=== PATIENT | female | born 1955 | race Two or more races ===

== ENCOUNTER 2016-12-15 14:22 | Inpatient (IN) | payer OTHER ==
[~2016-12-15] VITALS: Ht 154.9 cm; Wt 67.1 kg
[2016-12-15] MEDS ORDERED: MORPHINE SULFATE 2 MG/1 ML DISP.SYRIN IV ONE (15:45)
[2016-12-15] MEDS ORDERED: ONDANSETRON 4 MG/2 ML VIAL IV ONE (15:45)
[2016-12-15] MEDS ORDERED: ONDANSETRON 4 MG/2 ML VIAL ONE (15:53)
[2016-12-15] MEDS ORDERED: MORPHINE SULFATE 2 MG/1 ML DISP.SYRIN ONE (15:53)
[2016-12-15 15:59] LABS: BASOPHILS % (AUTO) 0.6 % (0.0-2.0); EOSINOPHILS # (AUTO) 0.1 K/uL (0.0-0.7); EOSINOPHILS % (AUTO) 1.9 % (0.0-7.0); HEMATOCRIT 40.1 % (37-47); HEMOGLOBIN 13.2 G/DL (12.0-16.0); LYMPHOCYTES # (AUTO) 2.9 K/UL (0.8-4.8); MEAN CORPUSCULAR HEMOGLOBIN 27.1 UUG (27.0-31.0); MEAN CORPUSCULAR HGB CONC 33 g/dL (32.0-37.0); MEAN CORPUSCULAR VOLUME 82.4 FL (81.0-99.0); MONOCYTES # (AUTO) 0.6 K/UL (0.1-1.30); MONOCYTES % (AUTO) 7.9 % (0.0-11.0); NEUTROPHILS # (AUTO) 3.9 K/UL (1.8-8.9); NEUTROPHILS % (AUTO) 50.6 % (38.5-71.5); PLATELET COUNT (AUTO) 262 K/UL (150-450); RED BLOOD CELL COUNT(AUTO) 4.87 MIL/UL (4.2-5.4); WHITE BLOOD COUNT (AUTO) 7.5 K/UL (4.0-11.2)
[2016-12-15 16:01] LABS: CREATININE 0.7 mg/dL (0.6-1.3); POTASSIUM 3.7 mmol/L (3.5-5.1)
[2016-12-15 16:07] LABS: BILIRUBIN,DIRECT 0.1 mg/dL (0.0-0.2); BILIRUBIN,TOTAL 0.2 mg/dL (0.2-1.0); TOTAL PROTEIN, SERUM 7.6 g/dL (6.4-8.2)
--- NOTE | 2016-12-15 16:57 | NUR ---
TEXTED DR. AMADO FOR MRI APPROVAL.
--- NOTE | 2016-12-15 17:11 | NUR ---
FOLLOWED UP WITH [facility] ON MRI, [facility] WILL CALL BACK.
--- NOTE | 2016-12-15 17:40 | NUR ---
MIKE FROM [facility] CALLED MAHIK AND SAID THE PT MRI CAN BE DONE AT 0830. CALLED [facility] AND SCHEDULED A CONSTRUCTION ACCOUNTANT AT 0745.
--- NOTE | 2016-12-15 19:20 | NUR ---
Received report from ROXANNA Hemphill. Assumed care of pt at this time. Pt resting in position of comfort for self. Awaiting [facility] transport to [place] for MRI scan.
--- NOTE | 2016-12-15 19:53 | NUR ---
EMS at bedside to transfer pt to [place] for MRI
--- NOTE | 2016-12-15 20:55 | NUR ---
Pt returned to room from [place]. Awaiting MRI results.
[2016-12-15] MEDS ORDERED: METOCLOPRAMIDE HCL 10 MG/2 ML VIAL IV ONE (21:45)
[2016-12-15] MEDS ORDERED: METOCLOPRAMIDE HCL 10 MG/2 ML VIAL ONE (22:06)
--- NOTE | 2016-12-15 22:10 | NUR ---
Pt c/o pain. MD aware. Pt medicated, will monitor for effects of medication. Pt resting in position of comfort for self. Family at bedside.
--- NOTE | 2016-12-15 23:30 | NUR ---
Pt to be admitted. Report called to ROXANNA Woodward. Preparing to transfer pt to the floor.
[2016-12-15] MEDS ORDERED: MORPHINE SULFATE 4 MG/1 ML DISP.SYRIN IV STA (23:59)
--- NOTE | 2016-12-16 00:10 | NUR ---
Pt c/o increased pain and mild dizziness. Pt informed the current dizziness is possibley the side effect of the medications she has received thus far. MD notified of pt's pain. Pt medicated for discomfort, will monitor for effects of medication.
[2016-12-16] MEDS ORDERED: ONDANSETRON 4 MG/2 ML VIAL IV PRN ×2 (00:15→03:15)
[2016-12-16 00:16] VITALS: BP 139/83
[2016-12-16] MEDS ORDERED: ONDANSETRON 4 MG/2 ML VIAL ONE (00:16)
[2016-12-16] MEDS ORDERED: MORPHINE SULFATE 4 MG/1 ML DISP.SYRIN ONE (00:16)
--- NOTE | 2016-12-16 00:48 | NUR ---
In from ER via [facility], 61 y/o female patient admitted due to severe headache associated w/ dizziness but denies N/V. Awake alert & oriented no SOB denies chest pain. Assisted to the bathroom, patient still c/o dizziness. Vital signs are WNL. Offered night snacks, patient tolerated. Paged Dr. Pineda for admitting orders.
[2016-12-16] MEDS ORDERED: ZOLPIDEM 5 MG TABLET PO PRN (03:15)
[2016-12-16] MEDS ORDERED: Z GUARD REMEDY PASTE 57 GM TUBE TOP PRN (03:15)
[2016-12-16] MEDS ORDERED: HYDROCODONE/APAP 5-325MG TABLET PO PRN (03:15)
[2016-12-16] MEDS ORDERED: ACETAMINOPHEN 325 MG TABLET PO PRN (03:15)
[2016-12-16] MEDS ORDERED: MAGNESIUM HYDROXIDE 30 ML LIQUID UDC PO PRN (03:15)
[2016-12-16 04:00] VITALS: BP 93/57
--- NOTE | 2016-12-16 06:28 | NUR ---
Patient fairly rested. No acute resp. distress. Vital signs are stable.
--- NOTE | 2016-12-16 06:44 | NUR ---
Awake c/o headache. [place] 1 tab po given. Denies N/V.
[2016-12-16] MEDS ORDERED: HYDROCODONE/APAP 5-325MG TABLET ONE (06:56)
[2016-12-16] MEDS ORDERED: PANTOPRAZOLE SODIUM 40 MG TABLET.DR PO SCH (07:16)
--- NOTE | 2016-12-16 07:30 | NUR ---
PT RECEIVED IN BED SLEEPING.PT IS AXOX4 .
[2016-12-16 12:08] LABS: BASOPHILS % (AUTO) 0.7 % (0.0-2.0); EOSINOPHILS # (AUTO) 0.1 K/uL (0.0-0.7); EOSINOPHILS % (AUTO) 2.1 % (0.0-7.0); HEMATOCRIT 39.5 % (37-47); HEMOGLOBIN 13.1 G/DL (12.0-16.0); LYMPHOCYTES # (AUTO) 2.7 K/UL (0.8-4.8); LYMPHOCYTES % (AUTO) 37.5 % (20.5-51.5); MEAN CORPUSCULAR HEMOGLOBIN 27.3 UUG (27.0-31.0); MEAN CORPUSCULAR HGB CONC 33 g/dL (32.0-37.0); MEAN CORPUSCULAR VOLUME 82.2 FL (81.0-99.0); MONOCYTES # (AUTO) 0.6 K/UL (0.1-1.30); NEUTROPHILS # (AUTO) 3.7 K/UL (1.8-8.9); NEUTROPHILS % (AUTO) 51.7 % (38.5-71.5); PLATELET COUNT (AUTO) 248 K/UL (150-450); WHITE BLOOD COUNT (AUTO) 7.1 K/UL (4.0-11.2)
[2016-12-16 12:10] VITALS: BP 111/71
[2016-12-16 12:19] LABS: CREATININE 0.8 mg/dL (0.6-1.3); MAGNESIUM 2.1 mg/dL (1.8-2.4); PHOSPHOROUS 4.4 mg/dL (2.5-4.9); POTASSIUM 3.8 mmol/L (3.5-5.1)
[2016-12-16 12:27] LABS: THYROID STIMULATING HORMONE 3.038 mIU/mL (0.358-3.740)
[2016-12-16] MEDS ORDERED: SUMATRIPTAN SUCCINATE 50 MG TABLET PO ONE (15:15)
[2016-12-16 16:14] VITALS: BP 117/79
[2016-12-16] MEDS ORDERED: HYDR-3326 PO (17:55)
--- NOTE | 2016-12-16 18:20 | NUR ---
D/C ORDERS RECEIVED NOTED AND CARRIED OUT.D/C INSTRUCTIONS AND EDUCATIONS GIVEN TO THE PT..PT VERBALIZED UNDERSTANDING ALL THE INSTRUCTION.D/C [place] PER MD ORDERS.
== END 2016-12-16 18:25 | disposition home or self-care (01) | DRG 54 ==
LOC: ER 14:28 → MED 22:10
PROVIDERS: ADMIT Internal Medicine; ATTEND Internal Medicine
DX: G43.109 Migraine with aura, not intractable, without status migrainosus (principal); E78.5 Hyperlipidemia, unspecified; F41.9 Anxiety disorder, unspecified; R42 Dizziness and giddiness; Z88.1 Allergy status to other antibiotic agents; F43.0 Acute stress reaction; I70.0 Atherosclerosis of aorta
CPT/HCPCS: 36415; 70030-TC; 70450; 70551; 71010; 83735; 84100; 84443; 85025; 93005; A4663; J2270; J2405; J2765

== ENCOUNTER 2017-08-19 03:45 | Emergency (ER) | payer OTHER ==
[~2017-08-19] VITALS: Ht 162.6 cm; Wt 65.8 kg
[~2017-08-19 03:45] MED LIST: HYDR-3326 PO
[2017-08-19] MEDS ORDERED: BISACODYL 10 MG SUPP.RECT RC ONE ×2 (04:26→04:30)
[2017-08-19] MEDS ORDERED: KETOROLAC TROMETHAMINE 60 MG INJ IM ONE ×2 (04:26→04:30)
[2017-08-19] MEDS ORDERED: MAGNESIUM CITRATE 296 ML BOTTLE PO ONE (04:30)
[2017-08-19] MEDS ORDERED: MAGNESIUM CITRATE 296 ML BOTTLE ONE (04:37)
--- NOTE | 2017-08-19 04:57 | NUR ---
Patient discharged to home in stable conditon. Written and verbal after care instructions given. Patient verbalizes understanding of instructions.
[2017-08-19 04:59] VITALS: BP 138/91
== END 2017-08-19 04:56 | disposition home or self-care (01) ==
LOC: ER 03:51
DX: K59.00 Constipation, unspecified (principal); G43.909 Migraine, unspecified, not intractable, without status migrainosus; Z88.1 Allergy status to other antibiotic agents; Z79.891 Long term (current) use of opiate analgesic
CPT/HCPCS: 96372; 99283; A4663; J1885

== ENCOUNTER 2024-03-11 08:29 | Emergency (ER) | payer MEDICARE, OTHER ==
[~2024-03-11] VITALS: Ht 160 cm; Wt 63.5 kg
[2024-03-11] MEDS ORDERED: KETOROLAC TROMETHAMINE 30 MG INJ ONE (09:02)
[2024-03-11] MEDS ORDERED: METOCLOPRAMIDE HCL 10 MG/2 ML VIAL ONE (09:02)
[2024-03-11] MEDS: KETOROLAC TROMETHAMINE 30 MG INJ IVP ONE (09:10)
[2024-03-11] MEDS: IV NS 1000 ML 1,000 ML IV ONE (09:10)
[2024-03-11] MEDS: METOCLOPRAMIDE HCL 10 MG/2 ML VIAL IV ONE (09:12)
[2024-03-11 09:14] LABS: BASOPHILS # (AUTO) 0.1 K/UL (0.0-0.2); BASOPHILS % (AUTO) 0.7 % (0.0-2.0); DIFFERENTIAL COMMENT 1; EOSINOPHILS % (AUTO) 0.1 % (0.0-7.0); HEMATOCRIT 43.5 % (31.2-41.9); HEMOGLOBIN 14.4 g/dL (10.9-14.3); LYMPHOCYTES # (AUTO) 1.3 K/uL (0.8-4.8); LYMPHOCYTES % (AUTO) 15.1 % (20.5-51.5); MEAN CORPUSCULAR HEMOGLOBIN 27.2 uug (24.7-32.8); MEAN CORPUSCULAR HGB CONC 33 g/dL (32.3-35.6); MEAN CORPUSCULAR VOLUME 81.9 fL (75.5-95.3); MONOCYTES # (AUTO) 0.8 K/uL (0.1-1.30); MONOCYTES % (AUTO) 8.9 % (0.0-11.0); NEUTROPHILS # (AUTO) 6.3 K/uL (1.8-8.9); NEUTROPHILS % (AUTO) 75.2 % (38.5-71.5); PLATELET COUNT (AUTO) 255 K/uL (179-408); RED BLOOD CELL COUNT(AUTO) 5.31 MIL/uL (3.63-4.92); WHITE BLOOD COUNT (AUTO) 8.4 K/uL (3.8-11.8)
[2024-03-11 09:19] LABS: CALCIUM 9.2 mg/dL (8.5-10.1); CREATININE 0.7 mg/dL (0.6-1.3)
[2024-03-11] MEDS ORDERED: FLAS1KIT2 TP (10:49)
[2024-03-11] MEDS ORDERED: FLAS1EAC2 TP (10:49)
[2024-03-11] MEDS ORDERED: METO-295 PO (10:49)
[2024-03-11] MEDS ORDERED: NAPR-1009 PO (10:49)
[2024-03-11] MEDS ORDERED: DIPH25CA83 PO (10:49)
[2024-03-11 10:57] VITALS: BP 130/88; O2SAT 97
== END 2024-03-11 10:58 | disposition home or self-care (01) ==
LOC: ER 08:29
DX: G43.511 Persistent migraine aura without cerebral infarction, intractable, with status migrainosus (principal); R11.10 Vomiting, unspecified; Z79.891 Long term (current) use of opiate analgesic; Z88.1 Allergy status to other antibiotic agents
CPT/HCPCS: 99284; 96374; 96361; 96375; 80048; 85025; 36415; J1885; J2765; J7040; A4606; A4663